=== PATIENT | female | born 1965 ===

== ENCOUNTER 2025-04-20 08:44 | Outpatient (CLI) | payer OTHER | END 2025-04-20 08:45 | disposition home or self-care (01) | LOC: CSHSLEEP 08:44 | PROVIDERS: ATTEND Family Medicine | DX: G47.33 Obstructive sleep apnea (adult) (pediatric) (principal); F41.9 Anxiety disorder, unspecified; R06.83 Snoring | CPT/HCPCS: 95800 ==